=== PATIENT | female | born 1930 | race Caucasian/White ===

== ENCOUNTER 2018-11-22 13:16 | Inpatient (IN) ==
[2018-11-22] MEDS ORDERED: ORPHENADRINE 60 MG/2 ML VIAL IV STA (14:11)
[2018-11-22 15:06] LABS: Basophils # 0.1 10*3/uL (0.0-0.2); Basophils % 0.2 % (0.0-0.8); Eosinophils % 0.1 % (0.00-10.9); Hematocrit 40.6 VOL% (35.7-47.0); Hemoglobin 12.9 GM/DL (12.0-16.0); Immature Granulocytes % 0.8 %; Immature Granulocytes Absolute 0.17 #; Lymphocytes % 28.1 % (21.3-54.2); Mean Corpuscular HGB Conc 31.8 GM/DL (32-36); Mean Corpuscular Volume 91.2 FL (87-102); Mean Platelet Volume 11.4 FL (9.6-12.0); Monocytes % 8.7 % (1.7-12.7); Neutrophils % 62.1 % (38.7-73.9); Platelet Count 252 T/CUMM (130-400); Red Blood Count 4.45 MC/CUMM (3.8-5.5); White Blood Count 21.4 T/CUMM (4-12)
[2018-11-22 15:16] LABS: INR 1.2; PT Patient Result 13.1 SECS
[2018-11-22 15:18] LABS: Apearance,Urine CLEAR (Clear); Bilirubin,Urine Negative (Negative); Blood, Urine Negative (Negative); Glucose,Urine (UA) Negative (Negative); Ketones,Urine Negative (Negative); Mucus,Urine Occasional /LPF (Occasional); Nitrite,Urine Negative (Negative); Protein,Urine Negative; RBC,Urine 1 /HPF (0-4); Squamous Epithelial Cell,Urine Occasional /HPF (0-10); Urine Color Yellow (Yellow); Urine Specific Gravity 1.019 (1.001-1.035); Urine Urobilinogen < 2.0 EU/DL (0.2-1.0); WBC,Urine 1 /HPF (0-6)
[2018-11-22 15:31] LABS: Alanine Aminotransferase 18 U/L (13-56); Alkaline Phosphatase 66 U/L (45-117); Aspartate Amino Transferase 9 U/L (0-37); Blood Urea Nitrogen 29 MG/DL (7-18); Calcium 8.8 MG/DL (8.5-10.1); Glucose 113 MG/DL (74-106); Osmolality,Calculated 279.8 MOS/KG (273-304); Total Protein 7.2 G/DL (6.4-8.3); Troponin I < 0.015 NG/ML (0.00-0.045)
[2018-11-22 15:35] LABS: Lymphocytes 27 % (20-55); Platelet Estimate Adequate; Segmented Neutrophils 64 % (50-85); Total Cells Counted 100
[2018-11-22] MEDS ORDERED: CLINDAMYCIN INJ 900 MG in PREMIX 1 EACH IV STA (16:35)
[2018-11-22] MEDS ORDERED: ACETAMINOPHEN 325 MG TABLET PO PRN (18:26)
[2018-11-22] MEDS ORDERED: BISACODYL 5 MG TABLET PO PRN (18:26)
[2018-11-22] MEDS ORDERED: DOCUSATE SODIUM 100 MG CAPSULE PO PRN (18:26)
[2018-11-22] MEDS ORDERED: guaiFENesin/DM ER 600-30 MG TABLET PO PRN (18:26)
[2018-11-22] MEDS ORDERED: ONDANSETRON 4 MG/2 ML VIAL IV PRN (18:26)
[2018-11-22] MEDS: DILTIAZEM CD 180 MG CAPSULE PO SCH (20:50)
[2018-11-22] MEDS: SIMVASTATIN 10 MG TABLET PO SCH (20:53)
[2018-11-22] MEDS: DABIGATRAN 75 MG CAPSULE PO SCH (20:53)
[2018-11-22] MEDS: METOPROLOL TARTRATE 25 MG TABLET PO SCH (20:53)
[2018-11-22] MEDS: LEVOFLOXACIN INJ 500 MG in PREMIX 1 EACH IV SCH (20:54)
[2018-11-23 04:36] LABS: Basophils % 0.2 % (0.0-0.8); Eosinophils % 0.2 % (0.00-10.9); Hematocrit 37.4 VOL% (35.7-47.0); Hemoglobin 11.8 GM/DL (12.0-16.0); Immature Granulocytes % 0.6 %; Immature Granulocytes Absolute 0.11 #; Lymphocytes % 32.7 % (21.3-54.2); Mean Corpuscular HGB Conc 31.6 GM/DL (32-36); Mean Corpuscular Volume 91.4 FL (87-102); Mean Platelet Volume 10.9 FL (9.6-12.0); Monocytes % 8.1 % (1.7-12.7); Neutrophils % 58.2 % (38.7-73.9); Platelet Count 219 T/CUMM (130-400); Red Blood Count 4.09 MC/CUMM (3.8-5.5); Red Cell Distribution Width 13.8 % (9.3-17.3); White Blood Count 18.3 T/CUMM (4-12)
[2018-11-23 05:06] LABS: Calcium 8.2 MG/DL (8.5-10.1); Osmolality,Calculated 286.5 MOS/KG (273-304)
[2018-11-23] MEDS: DABIGATRAN 75 MG CAPSULE PO SCH (08:26)
[2018-11-23] MEDS: ASPIRIN EC 81 MG TABLET PO SCH (08:26)
[2018-11-23] MEDS: PANTOPRAZOLE 40 MG TABLET PO SCH (08:26)
[2018-11-23] MEDS: DILTIAZEM CD 180 MG CAPSULE PO SCH ×2 (08:26→20:37)
[2018-11-23] MEDS: SPIRONOLACTONE 25 MG TABLET PO SCH (08:26)
[2018-11-23] MEDS: TIMOLOL 0.5% OPH SOLN 5 ML BOTTLE BOTH EYES SCH (08:31)
[2018-11-23] MEDS ORDERED: NON-FORMULARY MEDICATION (Omeprazole 20 MG) PO SCH (09:00)
[2018-11-23] MEDS ORDERED: ZALEPLON 5 MG CAPSULE PO PRN (09:44)
[2018-11-23 10:32] LABS: Thyroid Stimulating Hormone 1.81 uIU/ml (0.358-3.74)
[2018-11-23] MEDS: LEVOFLOXACIN INJ 500 MG in PREMIX 1 EACH IV SCH (20:36)
[2018-11-23] MEDS: SIMVASTATIN 10 MG TABLET PO SCH (20:37)
[2018-11-23] MEDS: METOPROLOL TARTRATE 25 MG TABLET PO SCH (20:37)
[2018-11-24 04:08] LABS: Basophils % 0.2 % (0.0-0.8); Eosinophils # 0.2 10*3/uL (0.0-0.87); Hematocrit 35.8 VOL% (35.7-47.0); Hemoglobin 11.7 GM/DL (12.0-16.0); Immature Granulocytes % 0.7 %; Immature Granulocytes Absolute 0.13 #; Lymphocytes # 6.9 10*3/uL (1.4-4.0); Lymphocytes % 38.1 % (21.3-54.2); Mean Corpuscular HGB Conc 32.7 GM/DL (32-36); Mean Corpuscular Volume 90.2 FL (87-102); Mean Platelet Volume 11.4 FL (9.6-12.0); Monocytes % 7.9 % (1.7-12.7); Neutrophils % 52.1 % (38.7-73.9); Platelet Count 223 T/CUMM (130-400); Red Blood Count 3.97 MC/CUMM (3.8-5.5); Red Cell Distribution Width 14.1 % (9.3-17.3); White Blood Count 18.2 T/CUMM (4-12)
[2018-11-24 04:35] LABS: Calcium 8.8 MG/DL (8.5-10.1); Osmolality,Calculated 289.3 MOS/KG (273-304)
[2018-11-24] MEDS: SPIRONOLACTONE 25 MG TABLET PO SCH (08:23)
[2018-11-24] MEDS: ASPIRIN EC 81 MG TABLET PO SCH (08:23)
[2018-11-24] MEDS: DILTIAZEM CD 180 MG CAPSULE PO SCH ×2 (08:23→22:02)
[2018-11-24] MEDS: TIMOLOL 0.5% OPH SOLN 5 ML BOTTLE BOTH EYES SCH (08:24)
[2018-11-24] MEDS: PANTOPRAZOLE 40 MG TABLET PO SCH (08:24)
[2018-11-24] MEDS ORDERED: RIVAROXABAN 20 MG TABLET PO SCH (09:00)
[2018-11-24] MEDS: LEVOFLOXACIN INJ 500 MG in PREMIX 1 EACH IV SCH (20:08)
[2018-11-24] MEDS: METOPROLOL TARTRATE 25 MG TABLET PO SCH (22:02)
[2018-11-24] MEDS: SIMVASTATIN 10 MG TABLET PO SCH (22:03)
[2018-11-24] MEDS: DABIGATRAN 75 MG CAPSULE PO SCH (22:07)
[2018-11-25 04:43] LABS: Basophils # 0.1 10*3/uL (0.0-0.2); Basophils % 0.3 % (0.0-0.8); Eosinophils # 0.3 10*3/uL (0.0-0.87); Eosinophils % 1.5 % (0.00-10.9); Hematocrit 38.2 VOL% (35.7-47.0); Hemoglobin 11.9 GM/DL (12.0-16.0); Immature Granulocytes % 0.8 %; Immature Granulocytes Absolute 0.15 #; Lymphocytes # 6.6 10*3/uL (1.4-4.0); Lymphocytes % 35.5 % (21.3-54.2); Mean Corpuscular HGB Conc 31.2 GM/DL (32-36); Mean Corpuscular Volume 91.6 FL (87-102); Monocytes % 8.3 % (1.7-12.7); Neutrophils % 53.6 % (38.7-73.9); Platelet Count 221 T/CUMM (130-400); Red Blood Count 4.17 MC/CUMM (3.8-5.5); Red Cell Distribution Width 14.1 % (9.3-17.3); White Blood Count 18.5 T/CUMM (4-12)
[2018-11-25 04:52] LABS: Calcium 9.2 MG/DL (8.5-10.1); Osmolality,Calculated 288.3 MOS/KG (273-304)
[2018-11-25 08:07] VITALS: BP 106/61
[2018-11-25] MEDS: TIMOLOL 0.5% OPH SOLN 5 ML BOTTLE BOTH EYES SCH (09:15)
[2018-11-25] MEDS: DILTIAZEM CD 180 MG CAPSULE PO SCH (09:15)
[2018-11-25] MEDS: DABIGATRAN 75 MG CAPSULE PO SCH (09:15)
[2018-11-25] MEDS: SPIRONOLACTONE 25 MG TABLET PO SCH (09:16)
[2018-11-25] MEDS: PANTOPRAZOLE 40 MG TABLET PO SCH (09:17)
[2018-11-25] MEDS: ASPIRIN EC 81 MG TABLET PO SCH (09:17)
== END 2018-11-25 12:15 | disposition home health service (06) | DRG 312 ==
LOC: N.ED 13:16 → N.EDINP 18:22 → SUATTDRO 18:22 → N.TELES 18:40
PROVIDERS: ADMIT Internal Medicine; ATTEND Internal Medicine

== ENCOUNTER 2020-03-20 09:37 | Observation (INO) ==
[2020-03-20] MEDS ORDERED: SODIUM CHLORIDE 0.9% 1,000 ML IV STA (10:45)
[2020-03-20 10:53] LABS: Basophils % 0.2 % (0.0-0.8); Eosinophils # 0.1 10*3/uL (0.0-0.87); Eosinophils % 0.4 % (0.00-10.9); Hematocrit 43.2 VOL% (35.7-47.0); Hemoglobin 14.3 GM/DL (12.0-16.0); Immature Granulocytes % 0.5 %; Immature Granulocytes Absolute 0.09 #; Lymphocytes # 3.9 10*3/uL (1.4-4.0); Mean Corpuscular HGB Conc 33.1 GM/DL (32-36); Mean Corpuscular Volume 86.7 FL (87-102); Mean Platelet Volume 12.2 FL (9.6-12.0); Monocytes % 6.7 % (1.7-12.7); Neutrophils % 72.2 % (38.7-73.9); Platelet Count 179 T/CUMM (130-400); Red Blood Count 4.98 MC/CUMM (3.8-5.5); Red Cell Distribution Width 14.9 % (9.3-17.3); White Blood Count 19.2 T/CUMM (4-12)
[2020-03-20 11:02] LABS: INR 1.1; PT Patient Result 12.1 SECS (9.8-11.9)
[2020-03-20 11:41] LABS: Albumin 3.6 G/DL (3.4-5.0); Bilirubin,Total 0.8 MG/DL (0.2-1.0); Calcium 9.7 MG/DL (8.5-10.1); Osmolality,Calculated 277.7 MOS/KG (273-304); Total Protein 7.3 G/DL (6.4-8.3)
[2020-03-20 11:46] LABS: Bilirubin,Urine Negative (Negative); Blood, Urine Negative (Negative); Glucose,Urine (UA) Negative (Negative); Ketones,Urine Negative (Negative); Mucus,Urine Occasional /LPF (Occasional); Nitrite,Urine Negative (Negative); Protein,Urine 30 MG/DL; RBC,Urine <1 /HPF (0-4); Squamous Epithelial Cell,Urine Occasional /HPF (0-10); Urine Appearance CLEAR (Clear); Urine Color Yellow (Yellow); Urine Specific Gravity 1.014 (1.001-1.035); Urine Urobilinogen < 2.0 EU/DL (0.2-1.0); WBC,Urine <1 /HPF (0-6)
[2020-03-20] MEDS ORDERED: GLUCAGON 1 MG VIAL IM PRN (14:39)
[2020-03-20] MEDS ORDERED: ONDANSETRON 4 MG/2 ML VIAL IV PRN (14:39)
[2020-03-20] MEDS ORDERED: DEXTROSE 50% 25 GM/50 ML VIAL IV PRN (14:39)
[2020-03-20] MEDS ORDERED: ALBUTEROL/IPRATROPIUM 3 ML NEB RESP TX PRN (14:54)
[2020-03-20] MEDS ORDERED: LEVOFLOXACIN INJ 500 MG in PREMIX 1 EACH IV SCH (15:30)
[2020-03-20 16:25] LABS: Hematocrit 39.7 VOL% (35.7-47.0); Hemoglobin 13.1 GM/DL (12.0-16.0)
[2020-03-20] MEDS: DILTIAZEM CD 180 MG CAPSULE PO SCH ×2 (16:36→21:18)
[2020-03-20] MEDS: SODIUM CHLORIDE 0.9% 1,000 ML IV SCH (16:36)
[2020-03-20] MEDS: MORPHINE 4 MG/1 ML VIAL IV PRN ×2 (17:34→21:19)
[2020-03-20] MEDS ORDERED: dilTIAZem Drip 125 MG/125 ML PREMIX IV SCH (18:00)
[2020-03-20] MEDS: metroNIDAZOLE INJ 500 MG in PREMIX 1 EACH IV SCH (18:31)
[2020-03-20] MEDS ORDERED: SIMVASTATIN 10 MG TABLET PO SCH (21:00)
[2020-03-20] MEDS ORDERED: METOPROLOL TARTRATE 25 MG TABLET PO SCH (21:00)
[2020-03-20 22:24] LABS: Hematocrit 37.9 VOL% (35.7-47.0); Hemoglobin 12.3 GM/DL (12.0-16.0)
[2020-03-20] MEDS ORDERED: ONDANSETRON 4 MG TABLET PO PRN (22:28)
[2020-03-20] MEDS ORDERED: PROMETHAZINE 25 MG TABLET PO PRN (22:29)
[2020-03-21] MEDS: MORPHINE 4 MG/1 ML VIAL IV PRN ×2 (00:43→03:43)
[2020-03-21] MEDS: metroNIDAZOLE INJ 500 MG in PREMIX 1 EACH IV SCH ×3 (03:42→10:51)
[2020-03-21 05:06] LABS: Basophils # 0.1 10*3/uL (0.0-0.2); Basophils % 0.3 % (0.0-0.8); Eosinophils # 0.2 10*3/uL (0.0-0.87); Eosinophils % 0.8 % (0.00-10.9); Hematocrit 37.7 VOL% (35.7-47.0); Hemoglobin 12.2 GM/DL (12.0-16.0); Immature Granulocytes % 0.4 %; Immature Granulocytes Absolute 0.08 #; Lymphocytes # 3.6 10*3/uL (1.4-4.0); Lymphocytes % 19.1 % (21.3-54.2); Mean Corpuscular HGB Conc 32.4 GM/DL (32-36); Mean Corpuscular Volume 89.3 FL (87-102); Mean Platelet Volume 12.1 FL (9.6-12.0); Monocytes % 7.1 % (1.7-12.7); Neutrophils % 72.3 % (38.7-73.9); Platelet Count 165 T/CUMM (130-400); Red Blood Count 4.22 MC/CUMM (3.8-5.5); Red Cell Distribution Width 15.2 % (9.3-17.3); White Blood Count 18.7 T/CUMM (4-12)
[2020-03-21 05:23] LABS: Calcium 8.7 MG/DL (8.5-10.1); Osmolality,Calculated 273.8 MOS/KG (273-304)
[2020-03-21] MEDS ORDERED: LEVOTHYROXINE 50 MCG TABLET PO SCH ×2 (06:30)
[2020-03-21] MEDS: DILTIAZEM CD 180 MG CAPSULE PO SCH (08:51)
[2020-03-21 08:53] VITALS: BP 106/52
[2020-03-21] MEDS ORDERED: PANTOPRAZOLE 40 MG TABLET PO SCH (09:00)
[2020-03-21] MEDS ORDERED: TIMOLOL 0.5% OPH SOLN 5 ML BOTTLE BOTH EYES SCH (09:00)
[2020-03-21] MEDS ORDERED: ZINC GLUCONATE 50 MG TABLET PO SCH (09:00)
[2020-03-21] MEDS ORDERED: SPIRONOLACTONE 25 MG TABLET PO SCH (09:00)
[2020-03-21] MEDS: SODIUM CHLORIDE 0.9% 1,000 ML IV SCH (10:53)
[2020-03-22] MEDS ORDERED: ERGOCALCIFEROL 50,000 UNIT CAPSULE PO SCH (09:00)
== END 2020-03-21 11:53 | disposition home or self-care (01) ==
LOC: N.EDINP 09:37 → N.ED 09:37 → N.TELEN 15:56
PROVIDERS: ADMIT Internal Medicine Geriatric Medicine; ATTEND Internal Medicine Geriatric Medicine